=== PATIENT | female | born 1945 | race Caucasian/White ===

== ENCOUNTER 2018-01-21 07:44 | Day surgery (SDC) | payer MEDICARE, OTHER ==
[~2018-01-21] VITALS: Ht 157.5 cm; Wt 69.8 kg
[~2018-01-21 07:44] MED LIST: CIPR500 PO; CRUTCH2 USE; FAMO10; HYDACE5325 PO; LEVSOD75 PO; OXYM.05NI; TRAM50 PO
== END 2018-01-21 10:49 | disposition home or self-care (01) ==
LOC: ORSCSDS 07:44
PROVIDERS: Internal Medicine Gastroenterology
PROC: 0DBM8ZX Excision of Descending Colon, Via Natural or Artificial Opening Endoscopic, Diagnostic (ICD-10-PCS; principal; 2018-01-21 09:15)
DX: Z12.11 Encounter for screening for malignant neoplasm of colon (principal); K57.30 Diverticulosis of large intestine without perforation or abscess without bleeding; K64.8 Other hemorrhoids; Z86.010 Personal history of colon polyps; K63.5 Polyp of colon; E03.9 Hypothyroidism, unspecified; Z79.899 Other long term (current) drug therapy
CPT/HCPCS: 88305; J0330; J1980; J2250; J2405; J3010; J7120

== ENCOUNTER → 2018-10-18 | Outpatient (CLI) | payer MEDICARE, OTHER ==
[2018-10-19 15:07] LABS: HPV 16 Negative (Negative); HPV 18 Negative (Negative); HPV OTHER HR TYPES Negative (Negative)
== END | disposition home or self-care (01) ==
LOC: LAB 17:55 → LAB SHORT 17:55
PROVIDERS: Obstetrics & Gynecology Gynecology
DX: Z12.4 Encounter for screening for malignant neoplasm of cervix (principal)
CPT/HCPCS: 87624; G0123

== ENCOUNTER → 2018-10-26 | Outpatient (CLI) | payer MEDICARE, OTHER | END | disposition home or self-care (01) | LOC: LAB SHORT 17:30 → LAB 17:30 | DX: N89.8 Other specified noninflammatory disorders of vagina (principal) | CPT/HCPCS: 87070; 87077; 87186; 87205 ==

== ENCOUNTER → 2018-11-17 | Outpatient (CLI) | payer MEDICARE, OTHER ==
[2018-11-17 18:36] LABS: Source, Urine Catheter
[2018-11-17 18:51] LABS: Bilirubin, Urine Neg (Neg); Blood, Urine Neg (Neg); Glucose Qualitative, Urine Neg (Neg); Ketones, Urine Neg (Neg); Leukocyte Esterase, Urine Neg (Neg); Nitrite, Urine Neg (Neg); Protein, Urine 1+ (Neg); Specific Gravity, Urine 1.015 (1.003-1.022); Urobilinogen, Urine NORM (Normal); pH, Urine 6.5 (5.0-8.0)
[2018-11-17 19:11] LABS: Appearance, Urine Clear (Clear); Color, Urine Yellow (P-Yellow)
== END | disposition home or self-care (01) ==
LOC: LAB SHORT 18:35 → LAB 18:35
PROVIDERS: Obstetrics & Gynecology Gynecology
DX: N89.8 Other specified noninflammatory disorders of vagina (principal); R10.2 Pelvic and perineal pain; R39.89 Other symptoms and signs involving the genitourinary system
CPT/HCPCS: 87070; 87205

== ENCOUNTER → 2018-11-30 | Outpatient (CLI) | payer MEDICARE, OTHER | END | disposition home or self-care (01) | LOC: LAB SHORT 19:18 → LAB 19:18 | DX: N89.8 Other specified noninflammatory disorders of vagina (principal) | CPT/HCPCS: 87070; 87205 ==

== ENCOUNTER 2019-04-17 22:58 | Emergency (ER) | payer MEDICARE, OTHER ==
[~2019-04-17] VITALS: Ht 160 cm; Wt 68.0 kg
[2019-04-18 00:05] LABS: BASOPHILS ABSOLUTE AUTO 0.05 K/mm3 (0.00-0.23); BASOPHILS PERCENT AUTO 1 % (0-2); EOSINOPHILS PERCENT AUTO 1 % (0-6); Hematocrit 43.1 % (33.0-51.0); Hemoglobin 13.6 g/dL (11.5-16.0); IMMATURE GRAN ABSOLUTE AUTO 0.03 K/mm3 (0.00-0.10); IMMATURE GRAN PERCENT AUTO 0 % (0-1); LYMPHOCYTES ABSOLUTE AUTO 2.07 K/mm3 (0.84-5.20); LYMPHOCYTES PERCENT AUTO 19 % (21-46); MONOCYTES ABSOLUTE AUTO 0.69 K/mm3 (0.16-1.47); MONOCYTES PERCENT AUTO 6 % (4-13); Mean Corpuscular HGB 28.9 pg (26.0-34.0); Mean Corpuscular HGB Conc 31.6 g/dL (31.5-36.5); Mean Corpuscular Volume 92 fL (80-100); Mean Platelet Volume 11.4 fL (9.1-12.4); NEUTROPHILS PERCENT AUTO 73 % (41-73); Platelet Count 272 K/mm3 (150-400); RDW Coefficient Variation 12.9 % (11.7-14.2); RDW Standard Deviation 43.3 fL (35.1-46.3); White Blood Cell Count 10.74 K/mm3 (4.00-11.30)
[2019-04-18 00:22] LABS: Albumin, Blood 4.2 g/dL (3.4-5.0); Albumin/Globulin Ratio 1.3 (0.8-1.8); Bilirubin, Total 0.3 mg/dL (0.1-1.0); Bun/Creatinine Ratio 25.7 (12.0-20.0); Calcium, Blood 9.2 mg/dL (8.5-10.1); Creatinine, Blood 1.13 mg/dL (0.40-1.00); Globulin, Blood 3.3 g/dL (2.2-4.0); Potassium, Blood 3.9 mmol/L (3.5-5.5); Total Protein, Blood 7.5 g/dL (6.4-8.2)
[2019-04-18] MEDS ORDERED: CIPR500 PO (02:05)
[2019-04-18 02:25] LABS: Source, Urine Clean Catch
[2019-04-18 02:28] LABS: Bilirubin, Urine Neg (Neg); Blood, Urine 5+ (Neg); Glucose Qualitative, Urine Neg (Neg); Ketones, Urine 1+ (Neg); Leukocyte Esterase, Urine 2+ (Neg); Nitrite, Urine Neg (Neg); Protein, Urine 2+ (Neg); Specific Gravity, Urine 1.025 (1.003-1.022); Urobilinogen, Urine NORM (Normal)
[2019-04-18 02:34] LABS: Appearance, Urine Hazy (Clear); Color, Urine Yellow (P-Yellow)
[2019-04-18 02:35] LABS: Bacteria Few /hpf; Calcium Oxalate Crystals Mod /hpf; Red Blood Cells, Urine TNTC /hpf (0-2); Squamous Epithelial Cells Few /hpf (Few); Uric Acid Crystals Few /hpf
[2019-04-18] MEDS ORDERED: Flomax0.4 MG PO (04:36)
[2019-04-18] MEDS ORDERED: CEFP200 PO (04:36)
[2019-04-18] MEDS ORDERED: Ultram50 MG PO (04:45)
== END 2019-04-18 05:05 | disposition home or self-care (01) ==
LOC: ER 22:58
PROVIDERS: Emergency Medicine
DX: N13.2 Hydronephrosis with renal and ureteral calculous obstruction (principal); Z88.2 Allergy status to sulfonamides; Z88.8 Allergy status to other drugs, medicaments and biological substances; Z88.5 Allergy status to narcotic agent; Z79.899 Other long term (current) drug therapy
CPT/HCPCS: 36415; 74177; 80053; 81001; 83690; 85025; 87086; 96374-59; 99284-25; J3010; Q9967

== ENCOUNTER 2019-04-25 16:44 | Emergency (ER) | payer MEDICARE, OTHER ==
[~2019-04-25] VITALS: Ht 160 cm; Wt 68.0 kg
[~2019-04-25 16:44] MED LIST changes: +CEFP200 PO; +Flomax0.4 MG PO; +Ultram50 MG PO
[2019-04-25] MEDS ORDERED: Norco 5-325 Ta1 EACH PO (17:22)
== END 2019-04-25 17:49 | disposition home or self-care (01) ==
LOC: ER 16:44
DX: N23 Unspecified renal colic (principal); Z88.2 Allergy status to sulfonamides; Z88.8 Allergy status to other drugs, medicaments and biological substances; Z88.5 Allergy status to narcotic agent; Z79.899 Other long term (current) drug therapy
CPT/HCPCS: 96372; 99283-25; J1885

== ENCOUNTER → 2022-03-16 | Outpatient (CLI) | payer MEDICARE ==
[~2022-03-16] MED LIST changes: +Norco 5-325 Ta1 EACH PO
== END | disposition home or self-care (01) ==
LOC: LAB SHORT 12:19 → PLD 12:19 → LAB 12:19
DX: C44.319 Basal cell carcinoma of skin of other parts of face (principal)
CPT/HCPCS: 88305

== ENCOUNTER → 2023-10-13 | Outpatient (CLI) | payer MEDICARE | LOC: LAB 14:24 → LAB SHORT 14:24 | DX: L57.0 Actinic keratosis (principal) | CPT/HCPCS: 88305 ==

== ENCOUNTER 2024-05-09 06:15 | Day surgery (SDC) | payer OTHER ==
[~2024-05-09] VITALS: Ht 162.6 cm; Wt 68.5 kg
[~2024-05-09 06:15] MED LIST changes: +Balanced Salt Epinephrine Irrigation Solution 500 mL IR SCH; +Lidocaine HCl/Pf 1% 5 ML VIAL XX SCH; +Moxifloxacin HCL 0.5 MG/0.1 ML 0.4MLSYR LEFTEYE SCH; +PHENYLEPHRINE\\TROPICAMIDE\\TETRACAINE OPHTHALMIC DILATING SOLN LEFTEYE PRN; +Phenylephrine Frt 10% Opth (ORSC) ONE; +Povidone-Iodine 450 DROP/30 ML Solution LEFTEYE SCH; +VOLTAREN ARTHRI20 GM
[2024-05-09] MEDS ORDERED: NS 500 ML IV ONE ×2 (06:39→06:53)
--- NOTE | 2024-05-09 06:40 | NUR ---
05/09/24 0640 Nilo Dimas CALL LIGHT WITHIN REACH. TETRACAINE IN AT 0636 IN LEFT EYE AND PLEDGETT IN AT 0639
--- NOTE | 2024-05-09 07:10 | NUR ---
05/09/24 0710 Susanna Henry ON EYE BED, PILLOW UNDER KNEES. RAILS UP
[2024-05-09] MEDS ORDERED: FentaNYL Citrate 50 MCG/ML 2 ML Injection ONE (07:31)
[2024-05-09] MEDS ORDERED: Midazolam HCl 1MG / ML 2ML Vial ONE (07:31)
[2024-05-09 08:15] VITALS: BP 174/75
== END 2024-05-09 08:17 | disposition home or self-care (01) ==
LOC: ORSCSDS 06:15
PROVIDERS: Student in an Organized Health Care Education/Training Program
PROC: 08RK3JZ Replacement of Left Lens with Synthetic Substitute, Percutaneous Approach (ICD-10-PCS; principal; 2024-05-09 07:30)
DX: H25.813 Combined forms of age-related cataract, bilateral (principal); I48.0 Paroxysmal atrial fibrillation; K21.9 Gastro-esophageal reflux disease without esophagitis; E03.9 Hypothyroidism, unspecified; Z79.899 Other long term (current) drug therapy
CPT/HCPCS: J2250; J3010; J7040; V2632

== ENCOUNTER 2024-05-16 06:15 | Day surgery (SDC) | payer OTHER ==
[~2024-05-16] VITALS: Ht 165.1 cm; Wt 68.0 kg
[~2024-05-16 06:15] MED LIST changes: -Moxifloxacin HCL 0.5 MG/0.1 ML 0.4MLSYR LEFTEYE SCH; +Moxifloxacin HCL 0.5 MG/0.1 ML 0.4MLSYR RIGHTEYE SCH; +NS 500 ML IV ONE; -PHENYLEPHRINE\\TROPICAMIDE\\TETRACAINE OPHTHALMIC DILATING SOLN LEFTEYE PRN; +PHENYLEPHRINE\\TROPICAMIDE\\TETRACAINE OPHTHALMIC DILATING SOLN RIGHTEYE PRN; -Phenylephrine Frt 10% Opth (ORSC) ONE; -Povidone-Iodine 450 DROP/30 ML Solution LEFTEYE SCH; +Povidone-Iodine 450 DROP/30 ML Solution RIGHTEYE SCH
--- NOTE | 2024-05-16 06:29 | NUR ---
DIFFICULTY WAKING AFTER COLONOSCOPY; PROPOFOL ALLERGY ON SOTELO SHEET
[2024-05-16] MEDS ORDERED: CENTRUM SILVER1 EAC2 PO (06:31)
[2024-05-16] MEDS ORDERED: PRESERVISION A1 EAC1 PO (06:31)
--- NOTE | 2024-05-16 06:37 | NUR ---
05/16/24 0637 Ama Javed AT 0632 PLEDGET AT 0698
[2024-05-16] MEDS ORDERED: Lidocaine HCl/Pf 1% 5 ML VIAL ONE (06:45)
[2024-05-16] MEDS ORDERED: NS 500 ML IV ONE (06:46)
[2024-05-16] MEDS ORDERED: FentaNYL Citrate 50 MCG/ML 2 ML Injection ONE (06:53)
[2024-05-16] MEDS ORDERED: Midazolam HCl 1MG / ML 2ML Vial ONE (06:54)
[2024-05-16 08:07] VITALS: BP 158/75
== END 2024-05-16 08:10 | disposition home or self-care (01) ==
LOC: ORSCSDS 06:15
PROVIDERS: Student in an Organized Health Care Education/Training Program
PROC: 08RJ3JZ Replacement of Right Lens with Synthetic Substitute, Percutaneous Approach (ICD-10-PCS; principal; 2024-05-16 07:30)
DX: H25.811 Combined forms of age-related cataract, right eye (principal); Z96.1 Presence of intraocular lens; K21.9 Gastro-esophageal reflux disease without esophagitis; I48.91 Unspecified atrial fibrillation; E03.9 Hypothyroidism, unspecified; Z79.899 Other long term (current) drug therapy
CPT/HCPCS: J2001; J2250; J3010; J7040; V2632

== ENCOUNTER 2024-06-29 17:27 | Emergency (ER) | payer OTHER ==
[~2024-06-29] VITALS: Ht 165.1 cm; Wt 65.8 kg
[~2024-06-29 17:27] MED LIST changes: -Balanced Salt Epinephrine Irrigation Solution 500 mL IR SCH; +CENTRUM SILVER1 EAC2 PO; -Lidocaine HCl/Pf 1% 5 ML VIAL XX SCH; -Moxifloxacin HCL 0.5 MG/0.1 ML 0.4MLSYR RIGHTEYE SCH; -NS 500 ML IV ONE; -PHENYLEPHRINE\\TROPICAMIDE\\TETRACAINE OPHTHALMIC DILATING SOLN RIGHTEYE PRN; +PRESERVISION A1 EAC1 PO; -Povidone-Iodine 450 DROP/30 ML Solution RIGHTEYE SCH
[2024-06-29 18:23] LABS: Source, Urine Voided
[2024-06-29 18:26] LABS: Appearance, Urine Clear (Clear); Bilirubin, Urine Neg (Neg); Blood, Urine Neg (Neg); Color, Urine Yellow (P-Yellow); Glucose Qualitative, Urine Neg (Neg); Ketones, Urine Neg (Neg); Leukocyte Esterase, Urine 2+ (Neg); Nitrite, Urine Neg (Neg); Protein, Urine Neg (Neg); Urobilinogen, Urine NORM (Normal)
[2024-06-29 18:33] LABS: Bacteria Rare /hpf; Red Blood Cells, Urine Not Seen /hpf (0-2); Squamous Epithelial Cells Few /hpf (Few)
[2024-06-29 19:57] VITALS: BP 165/72
== END 2024-06-29 19:57 | disposition home or self-care (01) ==
LOC: ER 17:27
PROVIDERS: Physician Assistant
DX: R10.32 Left lower quadrant pain (principal); Z88.2 Allergy status to sulfonamides; Z88.8 Allergy status to other drugs, medicaments and biological substances; Z88.5 Allergy status to narcotic agent; Z79.899 Other long term (current) drug therapy; E03.9 Hypothyroidism, unspecified
CPT/HCPCS: 74176; 81001; 99284-25

== ENCOUNTER 2024-07-24 18:18 | Emergency (ER) | payer OTHER ==
[~2024-07-24] VITALS: Ht 165.1 cm; Wt 65.3 kg
[2024-07-24] MEDS ORDERED: Aspirin 325 MG Tab PO ONE (18:55)
[2024-07-24 19:16] LABS: BASOPHILS ABSOLUTE AUTO 0.04 K/mm3 (0.00-0.23); BASOPHILS PERCENT AUTO 0 % (0-2); EOSINOPHILS ABSOLUTE AUTO 0.03 K/mm3 (0.00-0.68); EOSINOPHILS PERCENT AUTO 0 % (0-6); Hematocrit 41.2 % (33.0-51.0); IMMATURE GRAN ABSOLUTE AUTO 0.04 K/mm3 (0.00-0.10); IMMATURE GRAN PERCENT AUTO 0 % (0-1); LYMPHOCYTES ABSOLUTE AUTO 2.49 K/mm3 (0.84-5.20); LYMPHOCYTES PERCENT AUTO 21 % (21-46); MONOCYTES ABSOLUTE AUTO 0.72 K/mm3 (0.16-1.47); MONOCYTES PERCENT AUTO 6 % (4-13); Mean Corpuscular HGB 29.9 pg (26.0-34.0); Mean Corpuscular Volume 88 fL (80-100); Mean Platelet Volume 10.6 fL (9.1-12.4); NEUTROPHILS ABSOLUTE AUTO 8.46 K/mm3 (1.96-9.15); NEUTROPHILS PERCENT AUTO 72 % (41-73); Platelet Count 307 K/mm3 (150-400); RDW Standard Deviation 44.8 fL (35.1-46.3); Red Blood Cell Count 4.69 M/mm3 (3.80-5.20); White Blood Cell Count 11.78 K/mm3 (4.00-11.30)
[2024-07-24 19:59] LABS: Albumin, Blood 4.2 g/dL (3.4-5.0); Albumin/Globulin Ratio 1.3 (0.8-1.8); Bilirubin, Total 0.4 mg/dL (0.1-1.0); Bun/Creatinine Ratio 41.3 (12.0-20.0); Calcium, Blood 9.8 mg/dL (8.5-10.1); Creatinine, Blood 0.65 mg/dL (0.40-1.00); Globulin, Blood 3.3 g/dL (2.2-4.0); Potassium, Blood 4.1 mmol/L (3.5-5.5); Total Protein, Blood 7.5 g/dL (6.4-8.2)
[2024-07-24 22:47] LABS: Influenza A, PCR NEGATIVE (NEGATIVE); Influenza B, PCR NEGATIVE (NEGATIVE); Resp Syncytial Virus, PCR NEGATIVE (NEGATIVE); SARS-Cov-2 (COVID-19) PCR, MMC NEGATIVE (NEGATIVE)
[2024-07-24 23:15] VITALS: BP 168/76
== END 2024-07-24 23:34 | disposition home or self-care (01) ==
LOC: ER 18:18
PROVIDERS: Emergency Medicine; Student in an Organized Health Care Education/Training Program
DX: B02.9 Zoster without complications (principal); R13.10 Dysphagia, unspecified; K44.9 Diaphragmatic hernia without obstruction or gangrene; Z88.2 Allergy status to sulfonamides; Z91.09 Other allergy status, other than to drugs and biological substances; Z88.5 Allergy status to narcotic agent; Z88.8 Allergy status to other drugs, medicaments and biological substances; Z79.890 Hormone replacement therapy; Z79.899 Other long term (current) drug therapy; Z11.52 Encounter for screening for COVID-19
CPT/HCPCS: 0241U; 71046; 71260; 80053; 83690; 84484; 85025; 93005; 93010; 99285-25; A9270; Q9967

== ENCOUNTER 2024-08-31 10:21 | Emergency (ER) | payer OTHER ==
[~2024-08-31] VITALS: Ht 157.5 cm; Wt 72.6 kg
[2024-08-31 10:39] VITALS: BP 205/92
[2024-08-31] MEDS ORDERED: Robaxin750 MG PO (10:49)
[2024-08-31] MEDS ORDERED: LIDO700A20 TOP (10:49)
== END 2024-08-31 10:50 | disposition home or self-care (01) ==
LOC: ER 10:21
DX: S46.012A Strain of muscle(s) and tendon(s) of the rotator cuff of left shoulder, initial encounter (principal); E03.9 Hypothyroidism, unspecified; X58.XXXA Exposure to other specified factors, initial encounter; Z79.899 Other long term (current) drug therapy; Z88.2 Allergy status to sulfonamides; Z88.5 Allergy status to narcotic agent; Z88.8 Allergy status to other drugs, medicaments and biological substances
CPT/HCPCS: 99282

== ENCOUNTER 2025-01-03 09:33 | Emergency (ER) | payer OTHER ==
[~2025-01-03] VITALS: Ht 165.1 cm; Wt 64.4 kg
[~2025-01-03 09:33] MED LIST changes: +LIDO700A20 TOP; +Robaxin750 MG PO
[2025-01-03 09:56] VITALS: BP 181/83
== END 2025-01-03 10:03 | disposition home or self-care (01) ==
LOC: ER 09:33
DX: S51.852D Open bite of left forearm, subsequent encounter (principal); E03.9 Hypothyroidism, unspecified; Z79.899 Other long term (current) drug therapy; Z88.2 Allergy status to sulfonamides; Z88.5 Allergy status to narcotic agent; Z88.8 Allergy status to other drugs, medicaments and biological substances
CPT/HCPCS: 99283